=== PATIENT | female | born 1975 | race Caucasian/White ===

== ENCOUNTER 2017-04-26 09:43 | Emergency (ER) | payer BC, MEDICAID ==
--- NOTE | 2017-04-26 10:06 | Emergency Department Record ---
History of Present Illness - General Chief Complaint: General Stated Complaint: LEFT ARM SWELLING/BRUISING Time Seen by Provider: 04/26/17 10:05 Source: Patient Mode of Arrival: Ambulatory Limitations: No limitations - History of Present Illness Initial comments: The patient is here due to noticing her L arm has been painful and bruised for about 3 days. The pain is over the medial arm and it appears very mildly swollen. She denies any L wrist or hand pain or swelling. The patient also denies any CP, SOB, cough, fever or ADOLFO. She has no hx of any clotting issues and is not on OCP's. Onset/Timin -: Days(s) - Stella Coma Scale Eye Response: (4) Open spontaneously Motor Response: (6) Obeys commands Verbal Response: (5) Oriented Stella Total: 15 - Related Data Home Medications Medication Instructions Recorded Confirmed Last Taken Thyroid,Pork [[place] Thyroid] 1 tab PO DAILY 04/26/17 04/26/17 04/26/17 08:00 Previous Rx's Medication Instructions Recorded Clindamycin HCl [Cleocin HCl] 300 mg PO QID #28 capsule 04/26/17 Naproxen [Naprosyn] 250 mg PO BID #14 tablet 04/26/17 Allergies Allergy/AdvReac Type Severity Reaction Status Date / Time Penicillins Allergy RASH Verified 04/26/17 11:16 Travel Screening - Travel/Exposure Within Last 30 Days Have you traveled within the last 30 days?: No - Travel/Exposure Within Last Year Have you traveled outside the [place] in the last year?: No - Additonal Travel Details Have you been exposed to anyone with a communicable illness?: No - Travel Symptoms Symptom Screening: None Review of Systems Constitutional: Denies: Chills, Fever Eyes: Denies: Eye discharge ENT: Denies: Congestion Respiratory: Denies: Cough, Dyspnea Past Medical History - SOCIAL HISTORY Smoking Status: Current some day smoker Alcohol Use: Rare Drug Use: None - RESPIRATORY Hx Respiratory Disorders: No - CARDIOVASCULAR Hx Cardio Disorders: No - NEURO Hx Neuro Disorders: No - GI Hx GI Disorders: No - Hx Genitourinary Disorders: No - ENDOCRINE Hx Endocrine Disorders: No Hx Diabetes: No Hx Thyroid Disease: Yes (thyroidectomy) - MUSCULOSKELETAL Hx Musculoskeletal Disorders: No - PSYCH Hx Psych Problems: No - HEMATOLOGY/ONCOLOGY Hx Hematology/Oncology Disorders: No Family Medical History Any Significant Family History?: No Physical Exam - General General Appearance: Alert, Cooperative, No acute distress - Head Head exam: Atraumatic, Normocephalic - Eye Eye exam: Normal appearance, PERRL - Neck Neck exam: Normal inspection, Full ROM. negative: Tenderness - Respiratory Respiratory exam: Normal lung sounds bilaterally. negative: Respiratory distress - Cardiovascular Cardiovascular Exam: Regular rate, Normal rhythm, Normal heart sounds - GI/Abdominal GI/Abdominal exam: Soft, Normal bowel sounds. negative: Tenderness - Extremities Extremities exam: negative: Normal inspection (There is minor bruising to the medial distal L arm and proximal medial L forearm. There is tenderness along the bruised area but no erythema or warmth. The L arm and hand is NVI with normal pulses and sensation and motor function.) Image of Full Body: 1 - Area of very minor bruising and tenderness. - Neurological Neurological exam: Alert. negative: Motor sensory deficit - Skin Skin exam: negative: Rash Course Vital Signs 04/26/17 09:53 Temperature 98.6 F Pulse Rate 88 Respiratory 16 Rate Blood Pressure 133/89 Pulse Ox 98 - Reevaluation(s) Reevaluation #1: The patient is doing very well at this time. She denies any need for pain medicines and I did inform her of the normal lab work and CXR. We are still waiting on the L arm doppler. 04/26/17 11:00 Reevaluation #2: The patient is doing very well at this time. She denies any new symptoms or problems. I did explain to her that the tests are all NEG. She is to take the 2 prescribed medicines and use warm compresses to the L arm and see her PCP if not better in 3 days. 04/26/17 12:47 Medical Decision Making - Data Complexity MDM Data: Labs Ordered and/or Reviewed, X-Ray Ordered and/or Reviewed - Lab Data Result diagrams: 04/26/17 10:25 04/26/17 10:25 - Radiology Data Radiology results: Report reviewed (CXR: Neg. L arm Venous Doppler: Neg.) Disposition Disposition: Discharge Clinical Impression: Arm pain, left Disposition: Home, Self-Care Condition: (1) Good Instructions: Arm Pain (ED) Additional Instructions: Please use warm compresses to the affected painful area every 2 hours for 20 minutes. Take the Naprosyn and Clindamycin as directed. Please see your PCP in 3 -4 days if not better and return to the ER for any increasing pain, swelling, or any redness or fever. Prescriptions: Clindamycin HCl [Cleocin HCl] 300 mg PO QID #28 capsule Naproxen [Naprosyn] 250 mg PO BID #14 tablet Forms: Patient Portal Access Time of Disposition: 12:46 Quality - Quality Measures Quality Measures: N/A - Blood Pressure Screening View Details: Yes Does Patient Have Any of the Following: No Blood Pressure Classification: Normal BP Reading Systolic Measurement: 111 Diastolic Measurement: 76 Screening for High Blood Pressure: < Normal BP, F/U Not Required > [G8783]
[2017-04-26 10:35] LABS: BASO % 0.3 % (0-6); EOS % 3.2 % (0-6); GRAN % 72.7 % (47-80); HEMATOCRIT 42.5 % (35.0-47.0); HEMOGLOBIN 14.6 gm/dl (11.6-16.0); LYMPH % 17.4 % (16-45); MEAN CELL VOLUME 89.7 fl (81-97); MEAN CORPUSCULAR HEMOGLOBIN 30.8 pg (27-33); MEAN CORPUSCULAR HGB CONC 34.4 g/dl (32-36); MEAN PLATELET VOLUME 10.8 fl (7.4-10.4); MONO % 6.4 % (0-9); PLATELET COUNT 242 K/uL (130-400); RED BLOOD COUNT 4.74 M/uL (3.80-5.40); WHITE BLOOD COUNT W/O DIFF 10.9 K/uL (4.2-12.2)
[2017-04-26 10:51] LABS: ALB/GLOB RATIO 1.6 (1.1-1.8); ALBUMIN 4.7 g/dL (4.0-5.0); ALKALINE PHOSPHATASE 62 U/L (35-104); ALT/SGPT 25 U/L (<33); AST/SGOT 21 U/L (10.0-35.0); BLOOD UREA NITROGEN 8 mg/dL (6-20); C-REACTIVE PROTEIN 0.3 mg/dL (<0.5); CREATININE 0.7 mg/dL (0.5-0.9); EST GLOMERULAR FILTRATION RATE > 60 mL/min; GLUCOSE,RANDOM 99 mg/dL (74-109); TOTAL PROTEIN 7.6 g/dL (6.6-8.7)
[2017-04-26 10:58] LABS: INR 1.04; PROTHROMBIN TIME (PATIENT) 11.2 SECONDS (9.5-12.1)
--- NOTE | 2017-04-26 11:39 | RADIOLOGY REPORT ---
EXAM: CHEST, TWO VIEWS HISTORY: ACUTE LEFT ARM PAIN AND NONPRODUCTIVE COUGH. TECHNIQUE: Two views of the chest were obtained. Comparison: None. FINDINGS: The lungs are clear. The cardiac silhouette, diaphragm, and osseous structures are unremarkable for age. IMPRESSION: NEGATIVE CHEST EXAMINATION. JOB NUMBER: [id number] MTDD
--- NOTE | 2017-04-27 10:34 | US VENOUS DOPPLER REPORT ---
EXAM: ULTRASOUND VENOUS DOPPLER UPPER EXT LT HISTORY: ACUTE LEFT ARM PAIN AND SWELLING. COMPARISON: None. TECHNIQUE: Real-time ly scale sonographic imaging of the left upper extremity deep venous system was performed with duplex Doppler and spectral analysis. FINDINGS: Normal color-flow and compressibility in the following vessels: Left internal jugular vein, left subclavian vein, left axillary vein, left brachial vein, left basilic vein, left radial and ulnar veins. IMPRESSION: NEGATIVE FOR DEEP VENOUS THROMBOSIS OF THE LEFT UPPER EXTREMITY. JOB NUMBER: [id number] [facility]
== END 2017-04-26 12:55 | disposition home or self-care (01) ==
LOC: ER 09:43
DX: S50.12XA Contusion of left forearm, initial encounter (principal); S40.022A Contusion of left upper arm, initial encounter; M79.602 Pain in left arm; X58.XXXA Exposure to other specified factors, initial encounter
CPT/HCPCS: 71020; 80053; 85025; 85379; 85610; 85730; 86140; 99283; 99284